=== PATIENT | female | born 1935 | race Caucasian/White ===

== ENCOUNTER → 2018-09-16 | Outpatient (CLI) | payer OTHER, MEDICARE | LOC: FIMAGING 07:57 | PROVIDERS: ATTEND Family Medicine Geriatric Medicine | DX: M25.552 Pain in left hip (principal); W18.30XA Fall on same level, unspecified, initial encounter; S32.592A Other specified fracture of left pubis, initial encounter for closed fracture ==

== ENCOUNTER 2018-09-26 21:43 | Emergency (ER) | payer OTHER, MEDICARE ==
--- NOTE | 2018-09-26 21:58 | EDPHY ---
H & P Time Seen by Provider: 09/26/18 21:58 Constitutional: Initial Vital Signs Temperature (C) 36.8 C 09/26/18 22:21 Heart Rate 72 09/26/18 22:21 Respiratory Rate 18 09/26/18 22:21 Blood Pressure 221/119 H 09/26/18 22:21 O2 Sat (%) 92 09/26/18 22:21 O2 Delivery Mode Room Air Allergies/Adverse Reactions: No Known Allergies Allergy (Unverified 09/26/18 21:58) Home Medications: Medication Instructions Recorded Aspirin 09/26/18 Ativan 09/26/18 Cetaphil 09/26/18 Donepezil HCl 09/26/18 FLUoxetine 09/26/18 Lisinopril 09/26/18 MIRTAZAPINE 09/26/18 Metoprolol Succinate 09/26/18 Omeprazole 09/26/18 Tylenol 09/26/18 Medical Decision Making ED Course/Re-evaluation: CHIEF COMPLAINT: Hypertension HISTORY OF PRESENT ILLNESS: The patient is an 83 y/o female with a history of hypertension and dementia arriving via EMS for hypertension. The patient is unsure when she last took her blood pressure medication. Per her chart, she takes Lisinopril for her hypertension. She reports she is feeling okay and has no complaints. No fever, headache, body aches, lightheadedness, chest pain, heart palpitations, shortness of breath, cough, abdominal pain, urinary or bowel complaints, numbness, paresthesias. REVIEW OF SYSTEMS: A comprehensive 10 system review of systems is otherwise negative aside from elements mentioned in the history of present illness and medical decision making. PHYSICAL EXAM: HR, BP, O2 Sat, RR. Temp noted General Appearance: Alert, well hydrated, appropriate, and non-toxic appearing. Head: Atraumatic without scalp tenderness or obvious injury Eyes: Pupils equal, round, reactive to light and accommodation, EOMI, no trauma , no injection. Ears: Clear bilaterally, no perforation, normal landmarks Nose: Atraumatic, no rhinorrhea, clear. Throat: There is no erythema or exudates, no lesions, normal tonsils, mucus membranes moist. Neck: Supple, 2+ carotid upstroke, nontender, no lymphadenopathy. Respiratory: No retractions, no distress, no wheezes, and no accessory muscle use. Lungs are clear to auscultation bilaterally. Cardiovascular: Regular rate and rhythm, no murmurs, rubs, or gallops. Bilateral carotid, radial, dorsalis pedis, and posterior tibial pulses intact. Good capillary refill all extremities. Gastrointestinal: Abdomen is soft, nontender, non-distended, no masses, no rebound, no guarding, no peritoneal signs. Musculoskeletal: Normal active ROM of all extremities, atraumatic. Neurological: Alert and interactive. The patient has normal DTRs and non- focal cranial nerves, motor, sensory, and cerebellar exam. Skin: No rashes, good turgor, no nodules on palpation. Past medical history: Hypertension and dementia Past surgical history: Unknown Family history: Unknown Social history: Resides at [facility], retired, single DIAGNOSTICS/PROCEDURES/CRITICAL CARE TIME: Not indicated. DIFFERENTIAL DIAGNOSIS: The differential diagnosis for the patient's hypertension included but was not limited to hypertension, hypertension urgency, hypertension emergency, and missed medicines. MEDICAL DECISION MAKING: The patient is an 83 y/o female with a history of hypertension and dementia arriving via EMS for hypertension. The patient is unsure when she last took her blood pressure medication. She reports she is feeling okay and has no complaints. Patient's current blood pressure is 221/119. She is not having a hypertensive crisis or emergency. There are no signs of end organ damage. 20mg PO Lisinopril administered. Return precautions provided; patient is comfortable with this plan. - Data Points Medications Given: Discontinued Medications Lisinopril (Zestril) 20 mg PO EDNOW ONE Stop: 09/26/18 22:08 Last Admin: 09/26/18 22:12 Dose: 20 mg Departure - Departure Disposition: Home, Routine, Self-Care Clinical Impression: Hypertension Qualifiers: Hypertension type: unspecified Qualified Code(s): I10 - Essential (primary) hypertension Condition: Good Instructions: Hypertension (ED) Additional Instructions: 1. Take your medications as prescribed. 2. Follow-up with your primary doctor within 72 hours. 3. Return to the Emergency Department for fever, chest pain, shortness of breath , increasing pain or other worsening of condition. Referrals: [facility],. [Clinic] - As per Instructions Report Scribed for: [facility] [place] Report Scribed by: Stacie Dominguez Date of Report: 09/26/18 Time of Report: 21:59
[2018-09-26] MEDS ORDERED: LISINOPRIL 20 MG TAB PO ONE (22:07)
[2018-09-26 22:41] VITALS: BP 229/79
[2018-09-26] MEDS ORDERED: ONDANSETRON 4 MG/2 ML VIAL IVP ONE (22:55)
== END 2018-09-26 23:25 | disposition home or self-care (01) ==
LOC: EDUNIT# → EDBD
DX: I10 Essential (primary) hypertension (principal); F03.90 Unspecified dementia, unspecified severity, without behavioral disturbance, psychotic disturbance, mood disturbance, and anxiety
CPT/HCPCS: 96374; 99284; J2405